=== PATIENT | male | born 1995 | race Hispanic/Latino ===

== ENCOUNTER 2020-04-11 11:48 | Emergency (ER) | payer SELFPAY ==
--- NOTE | 2020-04-11 13:00 | Emergency Department Report ---
<JOSE CARSON M - Last Filed: 04/11/20 15:29> ED Psych HPI - General Chief Complaint: Psych Stated Complaint: MH Time Seen by Provider: 04/11/20 12:22 Source: police Mode of arrival: Ambulatory - History of Present Illness Initial Comments: This is a 24-year-old man who apparently called the police both yesterday and today. He tells me that he felt like a building construction professor who was working across the street from his home was trying to hurt him somehow. He could not specify the mechanism of injury. He did not know that individual. I asked him if he felt like he was getting paranoid and he denied this. From the available information he called the police a second time in a row. They made a determination that he needed a mental health evaluation. The patient denies any mental health history. He denies any history of medical problems. He denies any history of methamphetamine use. In fact he asked me what that is in a strange manner stating, "do I know what that is?" He is denying any intent of self-harm or harm to others. Initially, he stated to the nurse that he did not want his blood drawn. He stated that we could simply call his mother and she would come and pick him up. I explained to him under the circumstances he will need to have a mental health evaluation. He indicated that he would cooperate with this after counseling. There is some information at the patient was belligerent and wandering. He tells me that he was simply walking between noon and where he works and his residence in [place]. Complaint: other -: days(s) Associated Psychiatric Symptoms: other (Apparent paranoid ideation) History of same: No Quality: intermittent Improves With: none Worsens With: none Associated Symptoms: denies other symptoms Treatments Prior to Arrival: placed on mental he - Related Data Allergies Allergy/AdvReac Type Severity Reaction Status Date / Time No Known Allergies Allergy Unverified 04/11/20 12:02 ED Review of Systems Constitutional: denies: chills, fever Eyes: denies: eye pain, vision change ENT: denies: ear pain, throat pain Respiratory: denies: cough, shortness of breath, wheezing Cardiovascular: denies: chest pain, palpitations Endocrine: no symptoms reported Gastrointestinal: denies: abdominal pain, nausea, diarrhea Genitourinary: denies: urgency, dysuria Musculoskeletal: denies: back pain, joint swelling, arthralgia Skin: denies: rash, lesions Neurological: denies: headache, weakness, paresthesias Psychiatric: as per HPI, auditory hallucinations. denies: depression, homicidal thoughts, suicidal thoughts Hematological/Lymphatic: denies: easy bleeding, easy bruising ED Past Medical Hx - Past Medical History Previous Medical History?: No - Surgical History Past Surgical History?: No - Social History Smoking Status: Current Every Day Smoker Substance Use Type: Alcohol ED Physical Exam - General Limitations: No Limitations General appearance: alert, in no apparent distress - Head Head exam: Present: atraumatic, normocephalic - Eye Eye exam: Present: normal appearance. Absent: scleral icterus - ENT ENT exam: Present: mucous membranes moist - Neck Neck exam: Present: normal inspection - Respiratory Respiratory exam: Present: normal lung sounds bilaterally. Absent: respiratory distress - Cardiovascular Cardiovascular Exam: Present: regular rate, normal rhythm. Absent: systolic murmur, diastolic murmur, rubs, gallop - GI/Abdominal GI/Abdominal exam: Present: soft, normal bowel sounds. Absent: distended, tenderness, guarding, rebound - Rectal Rectal exam: Present: deferred - Extremities Exam Extremities exam: Present: normal inspection - Back Exam Back exam: Present: normal inspection - Neurological Exam Neurological exam: Present: alert, oriented X3, CN II-XII intact. Absent: motor sensory deficit - Psychiatric Psychiatric exam: Present: normal affect, normal mood - Skin Skin exam: Present: warm, dry, intact, normal color. Absent: rash ED Course - Reevaluation(s) Reevaluation #1: Discussed with mental health counselor. Patient will be deferred to the psychiatrist for full evaluation. Differential diagnosis certainly includes brief psychotic disorder related to substance. Patient will be placed on a mental health hold/1013 until the psychiatrist can make the final disposition. 04/11/20 13:03 Reevaluation #2: Charge nurse informed that the patient apparently has not had his blood drawn. He is 1013 status. He should have his blood drawn. I have counseled him about this twice and each time he is agreed to me that he will allow his blood to be drawn. 04/11/20 15:29 ED Disposition Clinical Impression: Psychotic episode, Medical clearance for psychiatric admission Disposition: DC-01 TO HOME OR SELFCARE Is pt being admited?: No Does the pt Need Aspirin: No Condition: Stable Referrals: PRIMARY CARE, [Primary Care Provider] - 3-5 Days <MINNIE GARCIA - Last Filed: 04/12/20 00:55> ED Review of Systems ROS: Stated complaint: MH Other details as noted in HPI ED Course Vital Signs 04/11/20 12:44 Temperature 98.6 F Pulse Rate 95 H Respiratory 19 Rate Blood Pressure 117/83 [Left] O2 Sat by Pulse 100 Oximetry - Reevaluation(s) Reevaluation #3: 04/12/20 00:54 pt has persistently refused to provide a urine sample during ed stay. other labs reviewed without significant abnormalities ED Medical Decision Making - Lab Data Result diagrams: 04/11/20 15:31 04/11/20 15:31 Critical care attestation.: If time is entered above; I have spent that time in minutes in the direct care of this critically ill patient, excluding procedure time.
[2020-04-11 16:16] LABS: Basophils # (Auto) 0.1 K/mm3 (0.0-0.1); Basophils % (Auto) 0.4 % (0.0-1.8); Eosinophils % (Auto) 0.1 % (0.0-4.3); Hematocrit 43.2 % (35.5-45.6); Hemoglobin 14.4 gm/dl (11.8-15.2); Lymphocytes # (Auto) 1.4 K/mm3 (1.2-5.4); Lymphocytes % (Auto) 11.4 % (13.4-35.0); Mean Corpuscular HGB Conc 33 % (32-34); Mean Corpuscular Volume 88 fl (84-94); Monocytes # (Auto) 0.7 K/mm3 (0.0-0.8); Monocytes % (Auto) 6.3 % (0.0-7.3); Platelet Count 232 K/mm3 (140-440); Red Blood Count 4.91 M/mm3 (3.65-5.03); Red Cell Distribution Width 13.1 % (13.2-15.2)
[2020-04-11 16:26] LABS: BUN/Creatinine Ratio 21; Blood Urea Nitrogen 15 mg/dL (9-20); Calcium 9.8 mg/dL (8.4-10.2); Hemolysis Index 4
[2020-04-11 16:42] LABS: Creatine Kinase MB 2.1 ng/mL (0.0-4.0)
[2020-04-12 10:07] LABS: Bilirubin,Urine NEG (Negative); Blood,Urine NEG (Negative); Color,Urine Yellow (Yellow); Mucus,Urine 3+ /HPF
[2020-04-12 10:13] LABS: Amphetamine Screen,Urine Negative; Benzodiazepines Screen,Urine Negative; Cocaine Screen,Urine Negative; Methadone Screen,Urine Negative; Opiate Screen,Urine Negative
--- NOTE | 2020-04-12 10:28 | Consultation ---
History of Present Illness - Reason for Consult Consult date: 04/12/20 Reason for consult: MHE Requesting physician: JOSE CARSON - History of Present Psychiatric Illness Per MHA: This is a 24-year-old man who apparently called the police both yesterday and today. He tells me that he felt like a construction driver who was working across the street from his home was trying to hurt him somehow. He could not specify the mechanism of injury. He did not know that individual. I asked him if he felt like he was getting paranoid and he denied this. From the available information he called the police a second time in a row. They made a determination that he needed a mental health evaluation. The patient denies any mental health history. He denies any history of medical problems. He denies any history of methamphetamine use. In fact he asked me what that is in a strange manner stating, "do I know what that is?" He is denying any intent of self-harm or harm to others. Initially, he stated to the nurse that he did not want his blood drawn. He stated that we could simply call his mother and she would come and pick him up. I explained to him under the circumstances he will need to have a mental health evaluation. He indicated that he would cooperate with this after counseling. Per MHA: Pt. is a 24 y/o white male who presents to the ER for a MHE after calling the police on 04/10/2020 and 04/11/2020. Pt. was wandering out in the streets and being belligerent. As a result, LE felt that pt. needed a MHE. While meeting with the physician, pt. reveals that a construction driver was trying to hurt him somehow but unable to elaborate. During current assessment, pt. presented as being alert, oriented x3, calm, and cooperative. Pt. denies SI/HI/self-harming behaviors. Pt. denies current and previous psychiatric treatment inpatient or outpatient. Pt. appeared paranoid. Pt. reports something is up. I dont feel like myself. Pt. reports that he is being watched by police. According to pt. he has a hx with LE and previously was arrested for stealing. Pt. admits to hearing voices but indicated that the voices are what I think, and other people dont know. Pt. denies command, visual, or tactile hallucinations. Pt. denies changes to sleep or appetite. However, pt. does report a change in schedule after working 12 hr shifts at his new job, [employer]. Pt. reports alcohol and marijuana use daily. Initially, pt reported I dont smoke every day and recanted statement by saying just about every day but not every day. According to pt., his last use was 04/10/2020. Pt. reports only smoking one blunt. Amount is unknown. Pt. states that he drinks a 12 ounce of beer daily. Pt. denies any other illicit drug use. Pt. reports having anxiety about being at the hospital and feels uncomfortable due to his grandmother passing away in the hospital a couple of years ago. Pts mother, Marcelina Byrne, was called to obtain COL information and she confirms pt. reports. Ms. Byrne denies any previous Mental Health or substance abuse treatment. Denies previous reports of SI, HI, hallucinations, aggression, altercations, or self-harming behaviors. COL reports alcohol and marijuana use but amount/frequency unknown. COL reports that pt. wasnt himself on 04/10/2020 and continued to state that people were following him. Although, no one one was present. COL reports that pt was fine this morning when she left for work. PSYCH HPI Patient is a 24 year old single, employed at [employer] male with no prior psychiatric history and no significant medical problem who currently resides with family presented to ED for MHE. Per reports, patient had called the police dept at least twice for abnormal thoughts of wanting to hurt someone. Patient reported going to work every day, reported he had gotten into an argument with someone also at work, went home drank a little bit more beer was a little bit disturbed by the event that happened at called the police so he could get some help and he reported the situation to the police. Patient reported drinking has been an issue for him, denies any illicit drug use besides marijuana, and endorses history of drinking in the family. She reports feeling a little bit better today, and does not little bit of suicidal thoughts when he thinks about his father and grandfather in his own life. Patient reported dropping out of high school at 11th grades going to family issues. Patient reported he is willing to go to alcohol use program outpatient. Denies any auditory or verbal hallucination at this moment PAST PSYCHIATRIC HISTORY Diagnoses: none reported Suicide attempts or Self-harm behavior: none reported Prior psychiatric hospitalizations: none reported Substance Abuse history: Alcohol Previous psychiatric medications tried: none reported Outpatient treatment: none reported PAST MEDICAL HISTORY: Family Psychiatric History: Yes alcohol use disorder SOCIAL HISTORY Marital Status: Single Living Arrangements: With Family Employment Status: none reported Access to guns/weapons: none reported Education: 9th grade History of Abuse: none reported Legal History: none REVIEW OF SYSTEMS Constitutional: Negative for weight loss ENT: Negative for stridor Respiratory: Negative for cough or hemoptysis All other systems reviewed and are negative MENTAL STATUS EXAMINATION General Appearance and Behavior: Age appropriate, good hygiene, wearing appropriate clothes, lying in bed, good eye contact, cooperative polite with questioning. Cooperation: Participating/engaged Psychomotor Behavior: unremarkable and within normal limits Mood: Good Affect and affective range: congruent with mood Thought Process: Fluent/Logical Thought Content: Within reality Speech: Normal volume, Regular rate and rhythm. Intellectual Functioning: Average Suicidal Ideation: "slightly suicidal Homicidal Ideation: Homicidal Impulse Control: Unimpaired Insight and Judgment: Normal insight and judgment Memory: Normal Attention: Normal Orientation: Alert, oriented Assessment and Plan - Psychiatric problem (1) Alcohol use disorder Current Visit: Yes Status: Acute Treatment Plan Collateral: I spoke with mom and she agrees with outpt F/U and agrees with the plan. MEDICATIONS: Risks, benefits and alternatives of medications discussed with the patient, questions answered and consent obtained from patient. PSYCHOTHERAPY: Supportive psychotherapy provided MEDICAL: Per primary team DELIRIUM PRECAUTIONS: Please re-orient patient frequently, keep lights on during the day, and minimize benzodiazepines and opiates as these medications could worsen patient's confusion. MEDICAL EXAMINER: DISPOSITION: Do Not Recommend acute inpatient psychiatric hospitalization at this time. Safety discharge with outpt alcohol rehab programs. LEGAL STATUS: 1013 rescinded FOLLOW-UP: Will follow Thank you for the consult. Please contact with any questions and/or concerns. Medications and Allergies Allergies Allergy/AdvReac Type Severity Reaction Status Date / Time No Known Allergies Allergy Unverified 04/11/20 12:02 Mental Status Exam - Vital signs Last Vital Signs Temp 98.7 F 04/12/20 07:30 Pulse 60 04/12/20 07:30 Resp 16 04/12/20 10:04 BP 128/72 04/12/20 07:30 Pulse Ox 98 04/12/20 10:04 Results Result Diagrams: 04/11/20 15:31 04/11/20 15:31 Abnormal lab results 04/11/20 04/11/20 04/11/20 Range/Units 15:31 15:31 15:31 WBC (4.5-11.0) K/mm3 RDW (13.2-15.2) % Lymph % (Auto) (13.4-35.0) % Seg Neutrophils % (40.0-70.0) % Seg Neutrophils # (1.8-7.7) K/mm3 Carbon Dioxide 21 L (22-30) mmol/L Creatinine 0.7 L (0.8-1.3) mg/dL Salicylates < 0.3 L (2.8-20.0) mg/dL Acetaminophen 5.0 L (10.0-30.0) ug/mL 04/11/20 Range/Units 15:31 WBC 11.9 H (4.5-11.0) K/mm3 RDW 13.1 L (13.2-15.2) % Lymph % (Auto) 11.4 L (13.4-35.0) % Seg Neutrophils % 81.8 H (40.0-70.0) % Seg Neutrophils # 9.8 H (1.8-7.7) K/mm3 Carbon Dioxide (22-30) mmol/L Creatinine (0.8-1.3) mg/dL Salicylates (2.8-20.0) mg/dL Acetaminophen (10.0-30.0) ug/mL All other labs normal. Assessment and Plan - Psychiatric problem (1) Alcohol use disorder Current Visit: Yes Status: Acute
[2020-04-12 10:40] LABS: Cannabinoid Screen,Urine Positive
[2020-04-12 18:53] VITALS: BP 140/70
== END 2020-04-12 15:00 | disposition home or self-care (01) ==
LOC: ED 11:48
DX: F23 Brief psychotic disorder (principal); F17.200 Nicotine dependence, unspecified, uncomplicated; Z04.6 Encounter for general psychiatric examination, requested by authority
CPT/HCPCS: 36415; 80048; 80307; 80320; 81001; 82550; 82553; 85025; G0480